=== PATIENT | female | born 1995 | race Caucasian/White ===

== ENCOUNTER 2017-05-24 23:16 | Emergency (ER) | payer SELFPAY ==
[2017-05-24] MEDS ORDERED: Ondansetron 4 MG/2 ML SDV IVPUSH ONE (23:47)
[2017-05-24] MEDS ORDERED: Sodium Chloride 0.9% 500 ML IV ONE (23:47)
[2017-05-24] MEDS ORDERED: HYDROmorphone 0.5 MG/0.5 ML Syringe IVPUSH ONE (23:47)
[2017-05-24] MEDS ORDERED: Sodium Chloride 0.9% 10 ML Syringe FLUSH PRN (23:47)
--- NOTE | 2017-05-25 00:11 | EDM.PDOC ---
ED HPI GENERAL MEDICAL PROBLEM - General Chief Complaint: Abdominal Pain Stated Complaint: RIGHT SIDE PAIN Time Seen by Provider: 05/24/17 23:37 Source of Information: Reports: Patient, RN Notes Reviewed - History of Present Illness INITIAL COMMENTS - FREE TEXT/NARRATIVE: 22-year-old female comes in with right-sided abdominal and flank discomfort. This started about 8 hours ago. This started in the right flank area with radiation to her back. There also has been sharp shooting discomfort involving right upper to right lower abdomen but not clear into the groin. She states there is a baseline ache that does not go completely away. She does get severe cramps or spasms that bring it up to a 9 or 10 level. Her appetite this evening is diminished but no vomiting or diarrhea. No voiding symptomatology. Last menstrual period 3-4 weeks ago. No current vaginal bleeding or spotting. No prior abdominal surgeries. Right Lower Abdomen Pain Score (Numeric/FACES): 8 - Related Data Allergies Allergy/AdvReac Type Severity Reaction Status Date / Time No Known Allergies Allergy Verified 05/24/17 23:27 Home Meds: Home Meds . [No Known Home Meds] 05/24/17 [History] Past Medical History - Past Health History Medical/Surgical History: Denies Medical/Surgical History Social & Family History - Family History Family Medical History: Noncontributory - Tobacco Use Smoking Status *Q: Current Every Day Smoker Years of Tobacco use: 1 Packs/Tins Daily: 0.5 - Recreational Drug Use Recreational Drug Use: No ED ROS GENERAL - Review of Systems Review Of Systems: See Below Constitutional: Denies: Fever, Chills HEENT: Denies: Rhinitis, Throat Pain Respiratory: Reports: Cough (Occasional, nonproductive) Cardiovascular: Denies: Chest Pain GI/Abdominal: Reports: Abdominal Pain (Right-sided), Decreased Appetite. Denies : Constipation, Diarrhea, Nausea, Vomiting : Reports: No Symptoms Musculoskeletal: Reports: Back Pain (Right-sided) Skin: Reports: No Symptoms Neurological: Reports: No Symptoms ED EXAM, GI/ABD - Physical Exam Exam: See Below General Appearance: Alert, Moderate Distress Eyes: Bilateral: Normal Appearance Throat/Mouth: Normal Inspection, Normal Oropharynx Head: No: Facial Swelling Neck: Supple, Full Range of Motion Respiratory/Chest: No Respiratory Distress, Lungs Clear, Normal Breath Sounds Cardiovascular: Tachycardia GI/Abdominal Exam: Tender (Right upper quadrant right flank right lower quadrant , left abdomen nontender). No: Guarding, Rebound Back Exam: CVA Tenderness (R). No: CVA Tenderness (L) Extremities: Normal Inspection, Normal Range of Motion Neurological: Alert, Oriented, No Motor/Sensory Deficits Skin Exam: Warm, Dry, Normal Color Course - Vital Signs Last Recorded V/S: Last Vital Signs Temp 98.4 F 05/24/17 23:24 Pulse 110 H 05/24/17 23:24 Resp 16 05/24/17 23:24 BP 151/82 H 05/24/17 23:24 Pulse Ox 100 05/24/17 23:24 - Orders/Labs/Meds Orders: Active Orders 24 hr Category Date Time Status Peripheral IV Care [RC] . DIRECTED Care 05/24/17 23:48 Active Transvaginal Non OB [US] Stat Exams 05/25/17 01:18 Taken Sodium Chloride 0.9% [Saline Flush] Med 05/24/17 23:47 Active 10 ml FLUSH ASDIRECTED PRN Peripheral IV Insertion Adult [OM.PC] Stat Oth 05/24/17 23:47 Ordered Medication Orders Sodium Chloride (Saline Flush) 10 ml FLUSH ASDIRECTED PRN PRN Reason: Keep Vein Open Last Admin: 05/25/17 00:01 Dose: 10 ml Labs: Laboratory Tests 05/24/17 05/24/17 05/24/17 Range/Units 23:53 23:53 23:53 WBC 9.92 (3.98-10.04) K/mm3 RBC 4.34 (3.98-5.22) M/mm3 Hgb 13.1 (11.2-15.7) gm/L Hct 39.0 (34.1-44.9) % MCV 89.9 (79.4-94.8) fl MCH 30.2 (25.6-32.2) pg MCHC 33.6 (32.2-35.5) g/dl RDW Std Deviation 41.9 (36.4-46.3) fL Plt Count 296 (182-369) K/mm3 MPV 9.5 (9.4-12.3) fl Neutrophils % (Manual) 59 (40-60) % Band Neutrophils % 0 (0-10) % Lymphocytes % (Manual) 36 (20-40) % Atypical Lymphs % 0 % Monocytes % (Manual) 3 (2-10) % Eosinophils % (Manual) 2 (0.7-5.8) % Basophils % (Manual) 0 L (0.1-1.2) Toxic Granulation See note Platelet Estimate Adequate Plt Morphology Comment Normal RBC Morph Comment Normal Sodium 139 (136-145) mEq/L Potassium 3.6 (3.5-5.1) mEq/L Chloride 103 (98-107) mEq/L Carbon Dioxide 23 (21-32) mEq/L Anion Gap 16.6 H (5-15) BUN 8 (7-18) mg/dL Creatinine 0.7 (0.55-1.02) mg/dL Est Cr Clr Drug Dosing 91.32 mL/min Estimated GFR (MDRD) > 60 (>60) mL/min BUN/Creatinine Ratio 11.4 L (14-18) Glucose 87 (74-106) mg/dL Calcium 9.6 (8.5-10.1) mg/dL Total Bilirubin 0.4 (0.2-1.0) mg/dL AST 13 L (15-37) U/L ALT 18 (14-59) U/L Alkaline Phosphatase 49 (46-116) U/L C-Reactive Protein < 0.2 (<1.0) mg/dL Total Protein 8.4 H (6.4-8.2) g/dl Albumin 4.6 (3.4-5.0) g/dl Globulin 3.8 gm/dL Albumin/Globulin Ratio 1.2 (1-2) Urine Color (Yellow) Urine Appearance (Clear) Urine pH (5.0-8.0) Ur Specific [place] (1.005-1.030) Urine Protein (Negative) Urine Glucose (UA) (Negative) Urine Ketones (Negative) Urine Occult Blood (Negative) Urine Nitrite (Negative) Urine Bilirubin (Negative) Urine Urobilinogen (0.2-1.0) Ur Leukocyte Esterase (Negative) Urine RBC (0-5) /hpf Urine WBC (0-5) /hpf Ur Epithelial Cells (0-5) /hpf Urine Bacteria (FEW) /hpf Urine Mucus (FEW) /hpf Urine HCG, Qual (NEGATIVE) 05/24/17 05/24/17 Range/Units 23:55 23:55 WBC (3.98-10.04) K/mm3 RBC (3.98-5.22) M/mm3 Hgb (11.2-15.7) gm/L Hct (34.1-44.9) % MCV (79.4-94.8) fl MCH (25.6-32.2) pg MCHC (32.2-35.5) g/dl RDW Std Deviation (36.4-46.3) fL Plt Count (182-369) K/mm3 MPV (9.4-12.3) fl Neutrophils % (Manual) (40-60) % Band Neutrophils % (0-10) % Lymphocytes % (Manual) (20-40) % Atypical Lymphs % % Monocytes % (Manual) (2-10) % Eosinophils % (Manual) (0.7-5.8) % Basophils % (Manual) (0.1-1.2) Toxic Granulation Platelet Estimate Plt Morphology Comment RBC Morph Comment Sodium (136-145) mEq/L Potassium (3.5-5.1) mEq/L Chloride (98-107) mEq/L Carbon Dioxide (21-32) mEq/L Anion Gap (5-15) BUN (7-18) mg/dL Creatinine (0.55-1.02) mg/dL Est Cr Clr Drug Dosing mL/min Estimated GFR (MDRD) (>60) mL/min BUN/Creatinine Ratio (14-18) Glucose (74-106) mg/dL Calcium (8.5-10.1) mg/dL Total Bilirubin (0.2-1.0) mg/dL AST (15-37) U/L ALT (14-59) U/L Alkaline Phosphatase (46-116) U/L C-Reactive Protein (<1.0) mg/dL Total Protein (6.4-8.2) g/dl Albumin (3.4-5.0) g/dl Globulin gm/dL Albumin/Globulin Ratio (1-2) Urine Color Yellow (Yellow) Urine Appearance Clear (Clear) Urine pH 7.0 (5.0-8.0) Ur Specific [place] 1.015 (1.005-1.030) Urine Protein Negative (Negative) Urine Glucose (UA) Negative (Negative) Urine Ketones Negative (Negative) Urine Occult Blood Negative (Negative) Urine Nitrite Negative (Negative) Urine Bilirubin Negative (Negative) Urine Urobilinogen 0.2 (0.2-1.0) Ur Leukocyte Esterase Negative (Negative) Urine RBC 0-5 (0-5) /hpf Urine WBC 0-5 (0-5) /hpf Ur Epithelial Cells 0-5 (0-5) /hpf Urine Bacteria Rare (FEW) /hpf Urine Mucus Not seen (FEW) /hpf Urine HCG, Qual Negative (NEGATIVE) Meds: Medications Generic Name Dose Route Start Last Admin Trade Name Freq PRN Reason Stop Dose Admin Sodium Chloride 10 ml 05/24/17 23:47 05/25/17 00:01 Saline Flush FLUSH 10 ml ASDIRECTED PRN Administration Keep Vein Open Discontinued Medications Generic Name Dose Route Start Last Admin Trade Name Freq PRN Reason Stop Dose Admin Hydromorphone HCl 0.5 mg 05/24/17 23:47 05/25/17 00:00 Dilaudid IVPUSH 05/24/17 23:48 0.5 mg ONETIME ONE Administration Hydromorphone HCl 0.5 mg 05/25/17 01:10 05/25/17 01:19 Dilaudid IVPUSH 05/25/17 01:11 0.5 mg ONETIME ONE Administration Hydromorphone HCl 0.5 mg 05/25/17 03:40 05/25/17 03:47 Dilaudid IVPUSH 05/25/17 03:41 0.5 mg ONETIME ONE Administration Sodium Chloride 500 mls @ 999 mls/hr 05/24/17 23:47 05/25/17 00:00 Normal Saline IV 05/25/17 00:17 999 mls/hr .BOLUS ONE Administration Ondansetron HCl 4 mg 05/24/17 23:47 05/25/17 00:00 Zofran IVPUSH 05/24/17 23:48 4 mg ONETIME ONE Administration - Re-Assessments/Exams Free Text/Narrative Re-Assessment/Exam: 05/25/17 01:10 White blood count, C-reactive protein normal. Labs are good. Urinalysis also normal. She does continue to have moderate right-sided discomfort somewhat better after Dilaudid 0.5 mg IV but still having moderate discomfort and tenderness right upper and lower abdomen. Has strong suspicion that this could be a ruptured ovarian cyst, will do pelvic ultrasound due to continued severity of discomfort. On 3:35. Ultrasound report does show a pocket of complex fluid right adnexal region suggestive for ruptured ovarian cyst, see report for details. Departure - Departure Time of Disposition: 01:14 Disposition: Home, Self-Care 01 Condition: Fair Clinical Impression: Ruptured ovarian cyst Abdominal pain Qualifiers: Abdominal location: right lower quadrant Qualified Code(s): R10.31 - Right lower quadrant pain - Discharge Information Instructions: Ovarian Cyst, [id number] Referrals: PCP,None [Primary Care Provider] - Forms: ED Department Discharge Additional Instructions: The discomfort you are having should gradually get better over the next 2-3 days , Tylenol every 6-8 hours for mild to moderate discomfort or hydrocodone if needed for more severe pain, do not take Tylenol and hydrocodone at the same time, do not drive or work when taking the hydrocodone pain medication. Follow- up clinic in 3-4 days if not much better, return to ED if symptoms worsening in any way. Radiologist does recommend a follow-up ultrasound in about 6 weeks. That can be ordered by your regular medical provider. - My Orders Last 24 Hours: My Active Orders 05/24/17 23:47 Sodium Chloride 0.9% [Saline Flush] 10 ml FLUSH ASDIRECTED PRN Peripheral IV Insertion Adult [OM.PC] Stat 05/24/17 23:48 Peripheral IV Care [RC] . DIRECTED 05/25/17 01:18 Transvaginal Non OB [US] Stat - Assessment/Plan Last 24 Hours: My Active Orders 05/24/17 23:47 Sodium Chloride 0.9% [Saline Flush] 10 ml FLUSH ASDIRECTED PRN Peripheral IV Insertion Adult [OM.PC] Stat 05/24/17 23:48 Peripheral IV Care [RC] . DIRECTED 05/25/17 01:18 Transvaginal Non OB [US] Stat
[2017-05-25] MEDS ORDERED: HYDROmorphone 0.5 MG/0.5 ML Syringe IVPUSH ONE ×2 (01:10→03:40)
--- NOTE | 2017-05-25 06:41 | US ---
Pelvic ultrasound: Multiple real-time images were obtained transvaginally. Uterus is anteverted. Incidental nabothian cysts are identified. Minimal cystic area within the endometrial cavity is seen believed to represent minimal amount of fluid. Endometrial thickness is normal at 1.2 cm. No myometrial abnormality is seen. Follicles are identified within both ovaries. Fluid is identified within the right adnexa. Measurements: Uterus: Length 7.0 cm, AP height 3.9 cm, transverse width 6.1 cm Right ovary: 4.6 x 2.1 x 2.8 cm Left ovary: 3.2 x 2.0 x 3.0 cm Impression: 1. Fluid within the right adnexa possibly due to cyst rupture. 2. Minimal fluid within the endometrial cavity which is felt to be incidental. 3. No additional abnormality is identified on pelvic ultrasound exam. Diagnostic code #3 Agree with preliminary report issued by [facility] ([facility] preliminary report dictated on 05/25/17, 4:30 AM Central Time)
== END 2017-05-25 03:55 | disposition home or self-care (01) ==
LOC: JD.ED 23:16
DX: N83.201 Unspecified ovarian cyst, right side (principal); F17.210 Nicotine dependence, cigarettes, uncomplicated
CPT/HCPCS: 36415; 76830; 80053; 81001; 81025; 85025; 86140; 96374; 96375; 96376; 99284; J1170; J2405; J7040; J7050; 99283

== ENCOUNTER 2019-09-08 07:58 | Emergency (ER) | payer MEDICAID ==
[2019-09-08] MEDS ORDERED: Acetaminophen/oxyCODONE 325-5 MG Tab PO ONE (08:12)
[2019-09-08] MEDS ORDERED: Ondansetron 4 MG Tab.DIS PO PRN (08:13)
--- NOTE | 2019-09-08 08:17 | EDM.PDOC ---
ED HPI GENERAL MEDICAL PROBLEM - General Chief Complaint: ENT Problem Stated Complaint: R EAR PAIN Time Seen by Provider: 09/08/19 08:04 Source of Information: Reports: Patient History Limitations: Reports: No Limitations - History of Present Illness INITIAL COMMENTS - FREE TEXT/NARRATIVE: 24-year-old female presents to the ED with severe right ear pain that started last evening and is intensified overnight. It would not allow her to get any sleep at all. Of note she is in the trimester approximately 32 weeks gestation. Her EDC has been set at December 01, 2019. She reports her cough is for the most part nonparoxysmal. Nasal congestion sore throat associate with ear infection. Nasal congestion started about 4 days ago as did the cough. No high fevers to suggest influenza. Onset: Sudden Onset Date: 09/07/19 (Cute onset of severe right ear pain last evening.) Duration: Hour(s):, Getting Worse Location: Reports: Face (Right ear pain) Quality: Reports: Ache ( constant and throbbing with occasional sharp stabbing pain.), Sharp, Stabbing Severity: Severe Improves with: Reports: None (10 out of 10) Worsens with: Reports: None Context: Reports: Other (Associate with a viral upper respiratory tract infection with nasal congestion sore throat and cough). 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 EDC is set at December 01, 2019.) Musculoskeletal History: Reports: Other (See Below) Other Musculoskeletal History: ACL with repair left leg - Infectious Disease History Infectious Disease History: Reports: Chicken Pox - Past Surgical History HEENT Surgical History: Reports: Myringotomy w Tube(s) Social & Family History - Family History Family Medical History: Noncontributory - Tobacco Use Smoking Status *Q: Current Every Day Smoker Years of Tobacco use: 4 Packs/Tins Daily: 0.2 - Caffeine Use Caffeine Use: Reports: Coffee - Living Situation & Occupation Living situation: Reports: Single Occupation: Employed (Time employed) ED ROS ENT - Review of Systems Review Of Systems: See Below Constitutional: Reports: Fever, Malaise, Weakness, Fatigue, Decreased Appetite. Denies: Chills, Weight Loss HEENT: Reports: Ear Pain (Right ear pain.), Throat Pain Respiratory: Reports: Cough Cardiovascular: Reports: No Symptoms (Mostly nonproductive) Endocrine: Reports: Fatigue GI/Abdominal: Reports: No Symptoms : Reports: Other (Currently 32 weeks gestation.) Musculoskeletal: Reports: No Symptoms Skin: Reports: No Symptoms Neurological: Reports: No Symptoms Psychiatric: Reports: No Symptoms Hematologic/Lymphatic: Reports: No Symptoms Immunologic: Reports: No Symptoms ED EXAM, ENT - Physical Exam Exam: See Below Exam Limited By: No Limitations General Appearance: Alert, WD/WN, Moderate Distress (Is miserable and she appears like she has not slept all night.) Eye Exam: Bilateral Eye: Normal Inspection Ears: Normal External Exam, TM Bulging (Marked right ear), TM Erythema (Your right ear), Other (Left tympanic membrane is normal.). No: Auricular Tenderness Nose: Clear Rhinorrhea Mouth/Throat: Normal Inspection, Normal Gums, Normal Lips, Pharyngeal Erythema ( Diffuse pharyngeal erythema without exudate.) Head: Atraumatic, Normocephalic Neck: Normal Inspection, Supple, Non-Tender, Full Range of Motion, Lymphadenopathy (L), Lymphadenopathy (R) (Mild) Respiratory/Chest: No Respiratory Distress, Lungs Clear, Normal Breath Sounds, No Accessory Muscle Use ( mild). No: Respiratory Distress, Rales, Rhonchi Cardiovascular: Normal Peripheral Pulses, Regular Rate, Rhythm, No Edema, No Gallop, No Murmur, No Rub GI/Abdominal: Normal Bowel Sounds, Soft, Non-Tender, No Organomegaly, Distended , Other (Gravid uterus palpable between the xiphisternum and the umbilicus.) Extremities: Normal Inspection, Normal Range of Motion, Non-Tender, No Pedal Edema Neurological: Alert, Oriented, CN II-XII Intact, Normal Cognition Psychiatric: Other (Is very tired and is in obvious pain.) Skin: Warm, Dry, Intact, Normal Color, No Rash Course - Vital Signs Last Recorded V/S: Last Vital Signs Temp 36.9 C 09/08/19 08:04 Pulse 87 09/08/19 08:04 Resp 16 09/08/19 08:04 BP 120/92 H 09/08/19 08:04 Pulse Ox 100 09/08/19 08:04 - Orders/Labs/Meds Orders: Active Orders 24 hr Category Date Time Status Ondansetron [Zofran ODT] Med 09/08/19 08:13 Active 4 mg PO Q4H PRN Medication Orders Ondansetron HCl (Zofran Odt) 4 mg PO Q4H PRN PRN Reason: Nausea/Vomiting Meds: Medications Generic Name Dose Route Start Last Admin Trade Name Freq PRN Reason Stop Dose Admin Ondansetron HCl 4 mg 09/08/19 08:13 Zofran Odt PO Q4H PRN Nausea/Vomiting Discontinued Medications Generic Name Dose Route Start Last Admin Trade Name Freq PRN Reason Stop Dose Admin Oxycodone/Acetaminophen 1 tab 09/08/19 08:12 Percocet 325-5 Mg PO 09/08/19 08:13 ONETIME ONE - Radiology Interpretation Free Text/Narrative:: 24-year-old female presents to the ED at 32 weeks gestation. She presents with a severe right ear pain ache that started last night. This is preceded by viral upper spike tract infection with nasal congestion and not nonproductive cough and mild sore throat for the last 3 to 4 days. She had plenty of ear infections as a youngster myringotomy tubes x1. Examination reveals the left TM is normal. There is some scar tissue from previous myringotomy tube placement. The right TM is very erythematous bulging and obviously infected. Mild pharyngitis appreciated as well lungs are clear treatment will be Percocet tabs 5/325 mg 1 or 2 every 4-6 hours for pain relief as needed. Antibiotic will be Omnicef 300 mg twice daily for the next 8 days to clear up ear infection. He is to expect improvement over the next 36 to 48 hours. Departure - Departure Time of Disposition: 08:13 Disposition: Home, Self-Care 01 Condition: Fair Clinical Impression: Otitis media Qualifiers: Otitis media type: suppurative Chronicity: acute Laterality: right Recurrence: non-recurrent Spontaneous tympanic membrane rupture: without spontaneous rupture Qualified Code(s): H66.001 - Acute suppurative otitis media without spontaneous rupture of ear drum, right ear Upper respiratory infection Qualifiers: URI type: unspecified viral URI Qualified Code(s): J06.9 - Acute upper respiratory infection, unspecified - Discharge Information *PRESCRIPTION DRUG MONITORING PROGRAM REVIEWED*: Not Applicable *COPY OF PRESCRIPTION DRUG MONITORING REPORT IN PATIENT CASS: Not Applicable Prescriptions: Cefdinir [Omnicef] 300 mg PO BID #16 cap oxyCODONE HCl/Acetaminophen [Percocet 5-325 mg Tablet] 1 - 2 each PO Q4H PRN # 12 tablet PRN Reason: pain relief. Instructions: Upper Respiratory Infection, Adult, Otitis Media, Adult, Easy-to- Read Referrals: PCP,None [Primary Care Provider] - Forms: ED Department Discharge Additional Instructions: Evaluation in the emergency room this morning in regards to upper respiratory tract infection with nasal congestion and mild nonproductive cough for the last 3 to 4 days. Development of severe right earache last evening and overnight. Examination confirms a right otitis media. The left is within normal limits other than scarring on the eardrum from previous tympanostomy tube placement. The oropharynx also shows some degree of inflammation Pentagon the right side. No exudate or pus is identified. There is diffuse swelling and tenderness throughout the cervical lymph nodes. Paroxysmal nonproductive cough and lungs are clear to all station percussion. Treatment is Percocet tabs 5/325 1 g tablet 1 to 2 tablets every 4-6 hours as needed for pain relief until the antibiotics become effective. Antibiotic is to be Omnicef 300 mg twice daily for the next 8 days. Expect marked improvement after your third dose of antibiotic treatment. This will likely be about a day and a half. Sepsis Event Note - Evaluation Sepsis Screening Result: No Definite Risk - Focused Exam Vital Signs: Vital Signs Temp Pulse Resp BP Pulse Ox 09/08/19 08:04 36.9 C 87 16 120/92 H 100 Date Exam was Performed: 09/08/19 Time Exam was Performed: 08:17 - My Orders Last 24 Hours: My Active Orders 09/08/19 08:13 Ondansetron [Zofran ODT] 4 mg PO Q4H PRN - Assessment/Plan Last 24 Hours: My Active Orders 09/08/19 08:13 Ondansetron [Zofran ODT] 4 mg PO Q4H PRN
== END 2019-09-08 08:33 | disposition home or self-care (01) ==
LOC: JD.ED 07:58
DX: H66.001 Acute suppurative otitis media without spontaneous rupture of ear drum, right ear (principal); J06.9 Acute upper respiratory infection, unspecified; F17.210 Nicotine dependence, cigarettes, uncomplicated
CPT/HCPCS: 99282; A9270; 99283

== ENCOUNTER 2019-11-24 08:54 | Inpatient (IN) | payer MEDICAID ==
[2019-11-24] MEDS ORDERED: Ondansetron 4 MG/2 ML SDV IVPUSH PRN ×2 (09:05→09:42)
[2019-11-24] MEDS ORDERED: Sodium Chloride 0.9% 10 ML Syringe FLUSH PRN (09:05)
[2019-11-24] MEDS ORDERED: Nalbuphine 10 MG/ML Syringe IVPUSH PRN (09:05)
--- NOTE | 2019-11-24 09:07 | PCM.LDHP ---
L&D History of Present Illness - General Date of Service: 11/24/19 Admit Problem/Dx: Patient Status Order with Admit Dx/Problem 11/24/19 09:06 Patient Status [ADT] Routine Admission Diagnosis/Problem Admission Diagnosis/Problem Normal labor Source of Information: Patient History Limitations: Reports: No Limitations - History of Present Illness Introduction:: Patient is a 24 y/o at 39 0/7 wks who presents for worsening contractions. In L&D overnight for concerns of labor. Exam showed her to be stable at about 3 cm. Was thus discharged home. Contractions worsened though overnight. Now here for reassessment - Related Data Allergies/Adverse Reactions: Allergies Allergy/AdvReac Type Severity Reaction Status Date / Time No Known Allergies Allergy Verified 09/08/19 08:05 Home Medications: Home Meds Ferrous Sulfate [Iron] 325 mg PO DAILY 11/23/19 [History] Pnv No.95/Ferrous Fum/Folic AC [ Vitamin Tablet] 1 each PO DAILY [History] Past Medical History LICENSED [employer] History: Reports: : 2 Para: 1 - Infectious Disease History Infectious Disease History: Reports: Chicken Pox - Past Surgical History HEENT Surgical History: Reports: Myringotomy w Tube(s) Musculoskeletal Surgical History: Reports: Arthroscopic Knee Social & Family History - Family History Family Medical History: Noncontributory - Tobacco Use Smoking Status *Q: Never Smoker - Caffeine Use Caffeine Use: Reports: Coffee - Alcohol Use Alcohol Use History: No - Recreational Drug Use Recreational Drug Use: No - Living Situation & Occupation Living situation: Reports: Single Occupation: Employed (Time employed) H&P Review of Systems - Review of Systems: Review Of Systems: See Below General: Reports: No Symptoms Pulmonary: Reports: No Symptoms Cardiovascular: Reports: No Symptoms Gastrointestinal: Reports: Abdominal Pain Genitourinary: Reports: No Symptoms Musculoskeletal: Reports: No Symptoms Psychiatric: Reports: No Symptoms L&D Exam - Exam Exam: See Below - OB Specific Contraction Intensity: Moderate to Strong Movement: Active Heart Tones: Present Heart Tones per Min: 140 Heart Rate (FHR) Variability: Moderate (6-25 bmp) Presentation: Vertex - Guardado Score Guardado Score Cervix Position: Posterior Guardado Score Consistency: Soft Guardado Score Effacement: >80% Guardado Score Dilation: > 5 cm Guardado Score Infant's Station: -2 Guardado Score Total: 9 - Exam General: Alert, Oriented, Cooperative Lungs: Clear to Auscultation, Normal Respiratory Effort Cardiovascular: Regular Rate, Regular Rhythm GI/Abdominal Exam: Soft, Non-Tender Genitourinary: Normal external exam Extremities: Normal Inspection Skin: Warm, Dry, Intact - Patient Data Result Diagrams: 11/24/19 09:15 - Problem List (1) 39 weeks gestation of SNOMED Code(s): 57629897 ICD Code: Z3A.39 - 39 WEEKS GESTATION OF Status: Acute Current Visit: Yes (2) Normal labor SNOMED Code(s): 16797739 ICD Code: O80 - ENCOUNTER FOR FULL-TERM UNCOMPLICATED DELIVERY; Z37.9 - OUTCOME OF DELIVERY, UNSPECIFIED Status: Acute Current Visit: Yes Problem List Initiated/Reviewed/Updated: Yes Orders Last 24hrs: Active Orders 24 hr Category Date Time Status Patient Status [ADT] Routine ADT 11/24/19 09:06 Ordered Activity as Tolerated [RC] PFP Care 11/24/19 09:05 Ordered Communication Order [RC] ASDIRECTED Care 11/24/19 09:05 Ordered Heart Tones [RC] ASDIRECTED Care 11/24/19 09:06 Ordered Non Stress Test [RC] PER UNIT ROUTINE Care 11/24/19 09:05 Ordered Notify Provider [RC] PFP Care 11/24/19 09:05 Ordered Notify Provider [RC] PRN Care 11/24/19 09:05 Ordered Peripheral IV Care [RC] . DIRECTED Care 11/24/19 09:06 Ordered Vital Signs [RC] PER UNIT ROUTINE Care 11/24/19 09:05 Ordered Regular Diet [DIET] Diet 11/24/19 Lunch Ordered CBC W/O DIFF,HEMOGRAM [HEME] Stat Lab 11/24/19 09:05 Ordered RAPID PLASMA REAGIN,RPR [CHEM] Routine Lab 11/24/19 09:05 Ordered TYPE AND SCREEN [BBK] Stat Lab 11/24/19 09:05 Ordered Lactated Ringers [Ringers, Lactated] 1,000 ml Med 11/24/19 09:15 Ordered IV ASDIRECTED Nalbuphine [Nubain] Med 11/24/19 09:05 Ordered 10 mg IVPUSH Q2H PRN Ondansetron [Zofran] Med 11/24/19 09:05 Ordered 4 mg IVPUSH Q4H PRN Oxytocin/Lactated Ringers [Pitocin in LR 10 Units/1,000 Med 11/24/19 09:15 Ordered ML] 10 unit in 1,000 ml IV .CONTINUOUS Sodium Chloride 0.9% [Saline Flush] Med 11/24/19 09:05 Ordered 10 ml FLUSH ASDIRECTED PRN Electronic Heart Tones Ext w TOCO [WOMSER] Ot 11/24/19 09:05 Ordered Routine Electronic Heart Tones Internal [WOMSER] Per Unit Ot 11/24/19 09:05 Ordered Routine Peripheral IV Insertion Adult [OM.PC] Routine Ot 11/24/19 09:05 Ordered Resuscitation Status Routine Resus Stat 11/24/19 09:05 Ordered Assessment/Plan Comment:: * Labs done * GBS negative * Pain management per patient preference * Anticipate
[2019-11-24] MEDS ORDERED: Oxytocin/Lactated Ringers 10 UNIT/1,000 ML BAG IV SCH ×2 (09:15→12:15)
[2019-11-24] MEDS: Lactated Ringers 1,000 ML IV SCH ×3 (09:22→10:43)
[2019-11-24] MEDS ORDERED: ePHEDrine 50 MG/ML SDV IVPUSH PRN (09:42)
[2019-11-24] MEDS ORDERED: fentaNYL 100 MCG/2 ML SDV EPIDUR PRN (09:42)
[2019-11-24] MEDS ORDERED: Bupivacaine/fentaNYL/NS 100 ML Bag EPIDUR SCH (09:45)
[2019-11-24] MEDS ORDERED: Phenylephrine 1 MG in Sodium Chloride 0.9% 10 ML IV SCH (09:45)
--- NOTE | 2019-11-24 09:58 | PCM.PREANE ---
Preanesthetic Assessment - Procedure Proposed Procedure: Epidural. - Anesthesia/Transfusion/Family Hx Anesthesia History: Prior Anesthesia Without Reaction Family History of Anesthesia Reaction: No Transfusion History: No Prior Transfusion(s) Intubation History: Unknown - Review of Systems General: No Symptoms Pulmonary: No Symptoms (Smoker: 1/2 ppd times 1 year.) Cardiovascular: No Symptoms, Palpitations (with ) Gastrointestinal: No Symptoms Neurological: No Symptoms Other: Reports: None - Physical Assessment NPO Status Date: 11/23/19 NPO Status Time: 23:59 Vital Signs: Last Vital Signs Temp 36.2 C 11/24/19 09:37 Pulse 107 H 11/24/19 09:37 Resp 16 11/24/19 09:37 BP 130/76 11/24/19 09:37 Pulse Ox Height: 1.52 m Weight: 67.676 kg ASA Class: 2 Mental Status: Alert & Oriented x3 Airway Class: Mallampati = 2 Dentition: Reports: Normal Dentition (tongue piercing noted/ removed. left nare nose piercing noted.), Caries Thyro-Mental Finger Breadths: 3 Mouth Opening Finger Breadths: 3 ROM/Head Extension: Full Lungs: Clear to Auscultation, Normal Respiratory Effort Cardiovascular: Regular Rate, Regular Rhythm, No Murmurs - Lab Values: Laboratory Last Values WBC 14.78 K/mm3 (3.98-10.04) H 11/24/19 09:15 RBC 4.02 M/mm3 (3.98-5.22) 11/24/19 09:15 Hgb 11.8 gm/dl (11.2-15.7) 11/24/19 09:15 Hct 36.6 % (34.1-44.9) 11/24/19 09:15 MCV 91.0 fl (79.4-94.8) 11/24/19 09:15 MCH 29.4 pg (25.6-32.2) 11/24/19 09:15 MCHC 32.2 g/dl (32.2-35.5) 11/24/19 09:15 RDW Std Deviation 46.2 fL (36.4-46.3) 11/24/19 09:15 Plt Count 296 K/mm3 (182-369) 11/24/19 09:15 MPV 9.8 fl (9.4-12.3) 11/24/19 09:15 All labs reviewed and noted and within acceptable ranges to proceed with epidural. - Allergies Allergies/Adverse Reactions: Allergies Allergy/AdvReac Type Severity Reaction Status Date / Time No Known Allergies Allergy Verified 09/08/19 08:05 - Anesthesia Plan Pre-Op Medication Ordered: None - Acknowledgements Anesthesia Type Planned: Epidural Pt an Appropriate Candidate for the Planned Anesthesia: Yes Alternatives and Risks of Anesthesia Discussed w Pt/Guardian: Yes Pt/Guardian Understands and Agrees with Anesthesia Plan: Yes PreAnesthesia Questionnaire - Past Health History Medical/Surgical History: Denies Medical/Surgical History HEENT History: Reports: Other (See Below) (Had myringotomy tubes placed as a youngster. X1) [employer] History: Reports: Musculoskeletal History: Reports: Other (See Below) Other Musculoskeletal History: ACL with repair left leg - Infectious Disease History Infectious Disease History: Reports: Chicken Pox - Past Surgical History HEENT Surgical History: Reports: Myringotomy w Tube(s) - HOME MEDS Home Medications: Home Meds Ferrous Sulfate [Iron] 325 mg PO DAILY 11/23/19 [History] Pnv No.95/Ferrous Fum/Folic AC [ Vitamin Tablet] 1 each PO DAILY [History] - CURRENT (IN HOUSE) MEDS Current Meds: Current Medications Ephedrine Sulfate (Ephedrine Sulfate) 5 mg IVPUSH ASDIRECTED PRN PRN Reason: Hypotension Fentanyl (Sublimaze) 100 mcg EPIDUR Q3H PRN PRN Reason: Pain Fentanyl/Bupivacaine HCl (Fentanyl/Bupivacaine/Ns 2 Mcg-0.125% 100 Ml) 100 ml EPIDUR ASDIRECTED RIAN Lactated Ringer's (Ringers, Lactated) 1,000 mls @ 100 mls/hr IV ASDIRECTED RIAN Last Admin: 11/24/19 09:22 Dose: 999 mls/hr Oxytocin/Lactated Ringer's (Pitocin In Lr 10 Units/1,000 Ml) 10 unit in 1,000 mls @ 500 mls/hr IV .CONTINUOUS RIAN Phenylephrine HCl 1 mg/ Sodium (Chloride) 10.1 mls @ 1 mls/sec IV TITRATE RIAN; Protocol Nalbuphine HCl (Nubain) 10 mg IVPUSH Q2H PRN PRN Reason: Pain Ondansetron HCl (Zofran) 4 mg IVPUSH Q4H PRN PRN Reason: Nausea/Vomiting Ondansetron HCl (Zofran) 4 mg IVPUSH ONETIME PRN PRN Reason: Nausea/Vomiting Sodium Chloride (Saline Flush) 10 ml FLUSH ASDIRECTED PRN PRN Reason: Keep Vein Open
[2019-11-24] MEDS ORDERED: Bupivacaine 0.25% 10 ML SDV ONE (10:00)
--- NOTE | 2019-11-24 12:12 | PCM.PNLD ---
Labor Progress Note - VS & Meds Vital Signs: Last Vital Signs Temp 36.2 C 11/24/19 09:37 Pulse 107 H 11/24/19 09:37 Resp 16 11/24/19 09:37 BP 130/76 11/24/19 09:37 Pulse Ox 98 11/24/19 09:41 Active Medications: Current Medications Ephedrine Sulfate (Ephedrine Sulfate) 5 mg IVPUSH ASDIRECTED PRN PRN Reason: Hypotension Fentanyl (Sublimaze) 100 mcg EPIDUR Q3H PRN PRN Reason: Pain Last Admin: 11/24/19 09:53 Dose: 100 mcg Fentanyl/Bupivacaine HCl (Fentanyl/Bupivacaine/Ns 2 Mcg-0.125% 100 Ml) 100 ml EPIDUR ASDIRECTED RIAN Last Admin: 11/24/19 09:53 Dose: 100 ml Lactated Ringer's (Ringers, Lactated) 1,000 mls @ 100 mls/hr IV ASDIRECTED RIAN Last Admin: 11/24/19 10:43 Dose: 999 mls/hr Oxytocin/Lactated Ringer's (Pitocin In Lr 10 Units/1,000 Ml) 10 unit in 1,000 mls @ 500 mls/hr IV .CONTINUOUS RIAN Phenylephrine HCl 1 mg/ Sodium (Chloride) 10.1 mls @ 1 mls/sec IV TITRATE RIAN; Protocol Oxytocin/Lactated Ringer's (Pitocin In Lr 10 Units/1,000 Ml) 10 unit in 1,000 mls @ 12 mls/hr IV TITRATE RIAN; Protocol Nalbuphine HCl (Nubain) 10 mg IVPUSH Q2H PRN PRN Reason: Pain Ondansetron HCl (Zofran) 4 mg IVPUSH Q4H PRN PRN Reason: Nausea/Vomiting Ondansetron HCl (Zofran) 4 mg IVPUSH ONETIME PRN PRN Reason: Nausea/Vomiting Last Admin: 11/24/19 11:33 Dose: 4 mg Sodium Chloride (Saline Flush) 10 ml FLUSH ASDIRECTED PRN PRN Reason: Keep Vein Open - Uterine Contractions Uterine Monitoring Mode: External [place] Contraction Intensity: Moderate to Strong - Monitoring Monitor Mode: External Ultrasound Heart Rate (FHR) Variability: Moderate (6-25 bmp) Accelerations: Present, 15x15 Decelerations: Early, Variable Strip Review: Category II - Vaginal Exam Dilation (cm): 5 Effacement (Percent): 80 Station: -2 Cervical Position: Midposition - Labor Progress (Free Text) Labor Progress: Doing well. Comfortable with epidural. Attempted AROM, but almost feels as though no bag present. Mostly just feel cervical mucous. Chux have been dry under patient. Will continue ot monitor and consider augmentation with pitocin
[2019-11-24] MEDS ORDERED: ceFAZolin 2 GM in Premix Bag 1 BAG IV ONE (15:05)
--- NOTE | 2019-11-24 15:05 | PCM.DEL ---
L & D Note - General Info Date of Service: 11/24/19 - Delivery Note Labor: Augmented by Oxytocin Delivery Outcome: Livebirth Delivery Method: Spontaneous Vaginal Delivery-Single Delivery Mode: Spontaneous Presentation: Left Occiput Anterior (FAWN) Nuchal Cord: Present (x2), Reduced Anesthesia Type: Epidural Amniotic Fluid Description: Clear Episiotomy Type: None Laceration: None Placenta: Partial (Placenta delivered, but retained membanes) Cord: 2 Vessels Estimated Blood Loss: 100 Resuscitation Needed: Yes : Bulb Syringe, Stimulated, Warmed, [place] Used, Warmer Used Delivery Comments (Free Text/Narrative):: Patient found to be complete and began pushing. With maternal pushing effort head delivered from FAWN presentation. Double nuchal present and reduced. With gentle downward traction shoulders and body delivered. Infant placed on maternal abdomen. Cord clamped and cut. Cord blood obtained. Placenta delivered intact, however, membranes noted to be trailing into the uterus. These were able to be extracted after several passes/manual extraction. Inspection of the perineum showed no lacerations - General Info Date of Service: 11/24/19 - Patient Data Vitals - Most Recent: Last Vital Signs Temp 36.2 C 11/24/19 09:37 Pulse 107 H 11/24/19 09:37 Resp 16 11/24/19 09:37 BP 130/76 11/24/19 09:37 Pulse Ox 98 11/24/19 09:41 Weight - Most Recent: 67.676 kg I&O - Last 24 Hours: Intake & Output 11/24/19 11/24/19 11/24/19 06:59 14:59 22:59 Intake Total 3000 Balance 3000 - Problem List & Annotations (1) 39 weeks gestation of SNOMED Code(s): 07964316 Code(s): Z3A.39 - 39 WEEKS GESTATION OF Status: Acute Current Visit: Yes (2) Normal labor SNOMED Code(s): 40987582 Code(s): O80 - ENCOUNTER FOR FULL-TERM UNCOMPLICATED DELIVERY; Z37.9 - OUTCOME OF DELIVERY, UNSPECIFIED Status: Acute Current Visit: Yes (3) Vaginal delivery SNOMED Code(s): 830287408 Code(s): O80 - ENCOUNTER FOR FULL-TERM UNCOMPLICATED DELIVERY Status: Acute Current Visit: Yes - Problem List Review Problem List Initiated/Reviewed/Updated: Yes - My Orders Last 24 Hours: My Active Orders 11/24/19 09:05 Activity as Tolerated [RC] PFP Communication Order [RC] ASDIRECTED Non Stress Test [RC] PER UNIT ROUTINE Notify Provider [RC] PFP Notify Provider [RC] PRN Vital Signs [RC] PER UNIT ROUTINE Nalbuphine [Nubain] 10 mg IVPUSH Q2H PRN Ondansetron [Zofran] 4 mg IVPUSH Q4H PRN Sodium Chloride 0.9% [Saline Flush] 10 ml FLUSH ASDIRECTED PRN Electronic Heart Tones Ext w TOCO [WOMSER] Routine Electronic Heart Tones Internal [WOMSER] Per Unit Routine Peripheral IV Insertion Adult [OM.PC] Routine Resuscitation Status Routine 11/24/19 09:06 Patient Status [ADT] Routine Heart Tones [RC] ASDIRECTED Peripheral IV Care [RC] . DIRECTED 11/24/19 09:15 RAPID PLASMA REAGIN,RPR [CHEM] Routine Lactated Ringers [Ringers, Lactated] 1,000 ml IV ASDIRECTED Oxytocin/Lactated Ringers [Pitocin in LR 10 Units/1,000 ML] 10 unit in 1,000 ml IV .CONTINUOUS 11/24/19 10:01 PATIENT RETYPE [BBK] Routine 11/24/19 11:20 Consult to Case Management/Sanitary Inspector [CONS] Routine 11/24/19 12:15 Oxytocin/Lactated Ringers [Pitocin in LR 10 Units/1,000 ML] 10 unit in 1,000 ml IV TITRATE 11/24/19 Lunch Regular Diet [DIET] - Assessment Assessment:: PPD#0 - Plan Plan:: * Routine cares * Will monitor bleeding closely, however, do feel all membranes extracted. Will give dose of ancef * Bottle feeding * Discharge home in 1-2 days
[2019-11-24] MEDS ORDERED: Acetaminophen 325 MG Tab PO PRN (15:33)
[2019-11-24] MEDS ORDERED: Witch Hazel Medicated Pads 40/Jar TOP PRN (15:33)
[2019-11-24] MEDS ORDERED: Benzocaine/Menthol 20%-0.5% Spray 56 GM Canister TOP PRN (15:33)
[2019-11-24] MEDS ORDERED: ceFAZolin/Dextrose,Iso-Osmotic 2 GM/50 ML Duplex Bag IV ONE (16:05)
[2019-11-25] MEDS ORDERED: Docusate Sodium 100 MG Cap PO PRN (03:34)
[2019-11-25] MEDS: Ibuprofen 600 MG Tab PO PRN ×2 (03:37→09:48)
--- NOTE | 2019-11-25 06:37 | PCM.DCSUM1 ---
Discharge Summary - Hospital Course Free Text/Narrative:: [facility] LIVE L/D Delivery Note Patient Name: RAZIA GOODE Date of : 89 Patient Status: Inpatient Attending Provider: Yancy Figueredo Date: 11/24/19 15:00 Initialization Date: 11/24/19 15:00 L & D Note - General Info Date of Service: 11/24/19 - Delivery Note Labor: Augmented by Oxytocin Delivery Outcome: Livebirth Infant Delivery Method: Spontaneous Vaginal Delivery-Single Infant Delivery Mode: Spontaneous Presentation: Left Occiput Anterior (FAWN) Nuchal Cord: Present (x2), Reduced Anesthesia Type: Epidural Amniotic Fluid Description: Clear Episiotomy Type: None Laceration: None Placenta: Partial (Placenta delivered, but retained membanes) Cord: 2 Vessels Estimated Blood Loss: 100 Resuscitation Needed: Yes : Bulb Syringe, Stimulated, Warmed, Kincaid Used, Warmer Used Delivery Comments (Free Text/Narrative):: Patient found to be complete and began pushing. With maternal pushing effort head delivered from FAWN presentation. Double nuchal present and reduced. With gentle downward traction shoulders and body delivered. placed on maternal abdomen. Cord clamped and cut. Cord blood obtained. Placenta delivered intact, however, membranes noted to be trailing into the uterus. These were able to be extracted after several passes/manual extraction. Inspection of the perineum showed no lacerations - General Info Date of Service: 11/24/19 - Patient Data Vitals - Most Recent: Last Vital Signs Temp 36.2 C 11/24/19 09:37 Pulse 107 H 11/24/19 09:37 Resp 16 11/24/19 09:37 BP 130/76 11/24/19 09:37 Pulse Ox 98 11/24/19 09:41 Weight - Most Recent: 67.676 kg I&O - Last 24 Hours: Intake & Output 11/24/19 11/24/19 11/24/19 06:59 14:59 22:59 Intake Total 3000 Balance 3000 - Problem List & Annotations (1) 39 weeks gestation of SNOMED Code(s): 63718248 Code(s): Z3A.39 - 39 WEEKS GESTATION OF Status: Acute Current Visit: Yes (2) Normal labor SNOMED Code(s): 08646569 Code(s): O80 - ENCOUNTER FOR FULL-TERM UNCOMPLICATED DELIVERY; Z37.9 - OUTCOME OF DELIVERY, UNSPECIFIED Status: Acute Current Visit: Yes (3) Vaginal delivery SNOMED Code(s): 524814654 Code(s): O80 - ENCOUNTER FOR FULL-TERM UNCOMPLICATED DELIVERY Status: Acute Current Visit: Yes - Problem List Review Problem List Initiated/Reviewed/Updated: Yes - My Orders Last 24 Hours: My Active Orders 11/24/19 09:05 Activity as Tolerated [RC] PFP Communication Order [RC] ASDIRECTED Non Stress Test [RC] PER UNIT ROUTINE Notify Provider [RC] PFP Notify Provider [RC] PRN Vital Signs [RC] PER UNIT ROUTINE Nalbuphine [Nubain] 10 mg IVPUSH Q2H PRN Ondansetron [Zofran] 4 mg IVPUSH Q4H PRN Sodium Chloride 0.9% [Saline Flush] 10 ml FLUSH ASDIRECTED PRN Electronic Heart Tones Ext w TOCO [WOMSER] Routine Electronic Heart Tones Internal [WOMSER] Per Unit Routine Peripheral IV Insertion Adult [OM.PC] Routine Resuscitation Status Routine 11/24/19 09:06 Patient Status [ADT] Routine Heart Tones [RC] ASDIRECTED Peripheral IV Care [RC] . DIRECTED 11/24/19 09:15 RAPID PLASMA REAGIN,RPR [CHEM] Routine Lactated Ringers [Ringers, Lactated] 1,000 ml IV ASDIRECTED Oxytocin/Lactated Ringers [Pitocin in LR 10 Units/1,000 ML] 10 unit in 1,000 ml IV .CONTINUOUS 11/24/19 10:01 PATIENT RETYPE [BBK] Routine 11/24/19 11:20 Consult to Case Management/[employer] Director [CONS] Routine 11/24/19 12:15 Oxytocin/Lactated Ringers [Pitocin in LR 10 Units/1,000 ML] 10 unit in 1,000 ml IV TITRATE 11/24/19 Lunch Regular Diet [DIET] - Assessment Assessment:: PPD#0 - Plan Plan:: * Routine cares * Will monitor bleeding closely, however, do feel all membranes extracted. Will give dose of ancef * Bottle feeding * Discharge home in 1-2 days HPI Initial Comments: [facility] LIVE L/D Delivery Note Patient Name: RAZIA GOODE Date of : [birth year] Patient Status: Inpatient Attending Provider: Yancy Figueredo Date: 11/24/19 15:00 Initialization Date: 11/24/19 15:00 L & D Note - General Info Date of Service: 11/24/19 - Delivery Note Labor: Augmented by Oxytocin Delivery Outcome: Livebirth Infant Delivery Method: Spontaneous Vaginal Delivery-Single Delivery Mode: Spontaneous Presentation: Left Occiput Anterior (FAWN) Nuchal Cord: Present (x2), Reduced Anesthesia Type: Epidural Amniotic Fluid Description: Clear Episiotomy Type: None Laceration: None Placenta: Partial (Placenta delivered, but retained membanes) Cord: 2 Vessels Estimated Blood Loss: 100 Resuscitation Needed: Yes : Bulb Syringe, Stimulated, Warmed, Kincaid Used, Warmer Used Delivery Comments (Free Text/Narrative):: Patient found to be complete and began pushing. With maternal pushing effort head delivered from FAWN presentation. Double nuchal present and reduced. With gentle downward traction shoulders and body delivered. Infant placed on maternal abdomen. Cord clamped and cut. Cord blood obtained. Placenta delivered intact, however, membranes noted to be trailing into the uterus. These were able to be extracted after several passes/manual extraction. Inspection of the perineum showed no lacerations - General Info Date of Service: 11/24/19 - Patient Data Vitals - Most Recent: Last Vital Signs Temp 36.2 C 11/24/19 09:37 Pulse 107 H 11/24/19 09:37 Resp 16 11/24/19 09:37 BP 130/76 11/24/19 09:37 Pulse Ox 98 11/24/19 09:41 Weight - Most Recent: 67.676 kg I&O - Last 24 Hours: Intake & Output 11/24/19 11/24/19 11/24/19 06:59 14:59 22:59 Intake Total 3000 Balance 3000 - Problem List & Annotations (1) 39 weeks gestation of SNOMED Code(s): 19056377 Code(s): Z3A.39 - 39 WEEKS GESTATION OF Status: Acute Current Visit: Yes (2) Normal labor SNOMED Code(s): 65414864 Code(s): O80 - ENCOUNTER FOR FULL-TERM UNCOMPLICATED DELIVERY; Z37.9 - OUTCOME OF DELIVERY, UNSPECIFIED Status: Acute Current Visit: Yes (3) Vaginal delivery SNOMED Code(s): 146165469 Code(s): O80 - ENCOUNTER FOR FULL-TERM UNCOMPLICATED DELIVERY Status: Acute Current Visit: Yes - Problem List Review Problem List Initiated/Reviewed/Updated: Yes - My Orders Last 24 Hours: My Active Orders 11/24/19 09:05 Activity as Tolerated [RC] PFP Communication Order [RC] ASDIRECTED Non Stress Test [RC] PER UNIT ROUTINE Notify Provider [RC] PFP Notify Provider [RC] PRN Vital Signs [RC] PER UNIT ROUTINE Nalbuphine [Nubain] 10 mg IVPUSH Q2H PRN Ondansetron [Zofran] 4 mg IVPUSH Q4H PRN Sodium Chloride 0.9% [Saline Flush] 10 ml FLUSH ASDIRECTED PRN Electronic Heart Tones Ext w TOCO [WOMSER] Routine Electronic Heart Tones Internal [WOMSER] Per Unit Routine Peripheral IV Insertion Adult [OM.PC] Routine Resuscitation Status Routine 11/24/19 09:06 Patient Status [ADT] Routine Heart Tones [RC] ASDIRECTED Peripheral IV Care [RC] . DIRECTED 11/24/19 09:15 RAPID PLASMA REAGIN,RPR [CHEM] Routine Lactated Ringers [Ringers, Lactated] 1,000 ml IV ASDIRECTED Oxytocin/Lactated Ringers [Pitocin in LR 10 Units/1,000 ML] 10 unit in 1,000 ml IV .CONTINUOUS 11/24/19 10:01 PATIENT RETYPE [BBK] Routine 11/24/19 11:20 Consult to Case Management/[employer] Director [CONS] Routine 11/24/19 12:15 Oxytocin/Lactated Ringers [Pitocin in LR 10 Units/1,000 ML] 10 unit in 1,000 ml IV TITRATE 11/24/19 Lunch Regular Diet [DIET] - Assessment Assessment:: PPD#0 - Plan Plan:: * Routine cares * Will monitor bleeding closely, however, do feel all membranes extracted. Will give dose of ancef * Bottle feeding * Discharge home in 1-2 days Brief History: [facility] LIVE . L/D Delivery Note. [facility]: [id number]. Date of : Patient Status: Inpatient. Attending Provider: Yancy Figueredount Number : [id number]. Date: 11/24/19 15:00Initialization Date: 11/24/19 15:00. L & D Note. - General Info. Date of Service: 11/24/19. - Delivery Note. Labor: Augmented by Oxytocin. Delivery Outcome: Livebirth. Infant Delivery Method: Spontaneous Vaginal Delivery-Single. Delivery Mode: Spontaneous. Presentation: Left Occiput Anterior (FAWN). Nuchal Cord: Present (x2), Reduced. Anesthesia Type: Epidural. Amniotic Fluid Description: Clear. Episiotomy Type: None. Laceration: None. Placenta: Partial (Placenta delivered, but retained membanes). Cord: 2 Vessels. Estimated Blood Loss: 100. Resuscitation Needed: Yes. : Bulb Syringe, Stimulated, Warmed, Kincaid Used, Warmer Used. Delivery Comments (Free Text/Narrative):: Patient found to be complete and began pushing. With maternal pushing effort head delivered from FAWN presentation. Double nuchal present and reduced. With gentle downward traction shoulders and body delivered. Infant placed on maternal abdomen. Cord clamped and cut. Cord blood obtained. Placenta delivered intact, however, membranes noted to be trailing into the uterus. These were able to be extracted after several passes/manual extraction. Inspection of the perineum showed no lacerations. - General Info. Date of Service: 11/24/19. - Patient Data. Vitals - Most Recent: Last Vital Signs. Temp 36.2 C 11/24/19 09:37. Pulse 107 H 11/24/19 09:37. Resp 16 11/24/19 09: 37. BP 130/76 11/24/19 09:37. Pulse Ox 98 11/24/19 09:41. Weight - Most Recent: 67.676 kg. I&O - Last 24 Hours: Intake & Output. 11/23/2004/. [id number]:[id number]. Intake [id number]. [id number]. - Problem List & Annotations. (1) 39 weeks gestation of . SNOMED Code(s): 43187605. Code(s): Z3A.39 - 39 WEEKS GESTATION OF Status: Acute Current Visit: Yes. (2) Normal labor. SNOMED Code(s): 87259509. Code(s): O80 - ENCOUNTER FOR FULL-TERM UNCOMPLICATED DELIVERY; Z37.9 - OUTCOME OF DELIVERY, UNSPECIFIED Status: Acute Current Visit: Yes. (3) Vaginal delivery. SNOMED Code(s): 255586557. Code(s): O80 - ENCOUNTER FOR FULL-TERM UNCOMPLICATED DELIVERY Status: Acute Current Visit: Yes. - Problem List Review. Problem List Initiated/Reviewed/Updated: Yes. - My Orders. Last 24 Hours: My Active Orders. 11/24/19 09:05. Activity as Tolerated [RC] PFP. Communication Order [RC] ASDIRECTED. Non Stress Test [RC] PER UNIT ROUTINE. Notify Provider [RC] PFP. Notify Provider [RC] PRN. Vital Signs [RC ] PER UNIT ROUTINE. Nalbuphine [Nubain] 10 mg IVPUSH Q2H PRN. Ondansetron [ Zofran] 4 mg IVPUSH Q4H PRN. Sodium Chloride 0.9% [Saline Flush] 10 ml FLUSH ASDIRECTED PRN. Electronic Heart Tones Ext w TOCO [WOMSER] Routine. Electronic Heart Tones Internal [WOMSER] Per Unit Routine. Peripheral IV Insertion Adult [OM.PC] Routine. Resuscitation Status Routine. 11/24/19 09:06. Patient Status [ADT] Routine. Heart Tones [RC] ASDIRECTED. Peripheral IV Care [RC] . DIRECTED. 11/24/19 09:15. RAPID PLASMA REAGIN,RPR [CHEM] Routine. Lactated Ringers [Ringers, Lactated] 1,000 ml IV ASDIRECTED. Oxytocin/Lactated Ringers [Pitocin in LR 10 Units/1,000 ML] 10 unit in 1,000 ml IV .CONTINUOUS. 11/24/19 10:01. PATIENT RETYPE [BBK] Routine. 11/24/19 11:20. Consult to Case Management/[employer] Director [CONS] Routine. 11/24/19 12:15. Oxytocin/Lactated Ringers [Pitocin in LR 10 Units/1, 000 ML] 10 unit in 1,000 ml IV TITRATE. 11/24/19 Lunch. Regular Diet [DIET]. - Assessment. Assessment:: PPD#0. - Plan. Plan:: Routine cares. Will monitor bleeding closely, however, do feel all membranes extracted. Will give dose of ancef. Bottle feeding. Discharge home in 1-2 days Diagnosis: Stroke: No - Discharge Data Discharge Date: 11/25/19 Discharge Disposition: Home, Self-Care 01 Condition: Good - Referral to Home Health Primary Care Physician: Yancy Figueredo MD - Discharge Diagnosis/Problem(s) (1) 39 weeks gestation of SNOMED Code(s): 26299515 ICD Code: Z3A.39 - 39 WEEKS GESTATION OF Status: Acute Current Visit: Yes (2) Normal labor SNOMED Code(s): 72168563 ICD Code: O80 - ENCOUNTER FOR FULL-TERM UNCOMPLICATED DELIVERY; Z37.9 - OUTCOME OF DELIVERY, UNSPECIFIED Status: Acute Current Visit: Yes (3) Vaginal delivery SNOMED Code(s): 221767592 ICD Code: O80 - ENCOUNTER FOR FULL-TERM UNCOMPLICATED DELIVERY Status: Acute Current Visit: Yes - Patient Summary/Data Complications: none Consults: none Hospital Course: uneventful - Patient Instructions Diet: Usual Diet as Tolerated Driving: Do Not Drive (x48 hrs) Showering/Bathing: May Shower Notify Provider of: Fever, Increased Pain, Swelling and Redness, Drainage, Nausea and/or Vomiting - Discharge Plan *PRESCRIPTION DRUG MONITORING PROGRAM REVIEWED*: Not Applicable *COPY OF PRESCRIPTION DRUG MONITORING REPORT IN PATIENT CASS: Not Applicable Home Medications: Home Meds Ferrous Sulfate [Iron] 325 mg PO DAILY 11/23/19 [History] Pnv No.95/Ferrous Fum/Folic AC [ Vitamin Tablet] 1 each PO DAILY [History] Acetaminophen [Tylenol] 650 mg PO Q6H PRN tablet 11/25/19 [Rx] Benzocaine/Menthol [Dermoplast Pain Relief Dobson] 1 spray TOP ASDIRECTED PRN canister 11/25/19 [Rx] Docusate Sodium [Colace] 100 mg PO BID PRN cap 11/25/19 [Rx] Ibuprofen [Motrin] 600 mg PO Q6H PRN tablet 11/25/19 [Rx] witch Lidia [Tucks] 1 pad TOP ASDIRECTED PRN pad 11/25/19 [Rx] Referrals: Yancy Figueredo MD [Primary Care Provider] - (will call Wednesday for appointment ) - Discharge Summary/Plan Comment DC Time >30 min.: No - Patient Data Vitals - Most Recent: Last Vital Signs Temp 97.9 F 11/25/19 02:48 Pulse 84 11/25/19 02:48 Resp 16 11/25/19 02:48 BP 109/52 L 11/25/19 02:48 Pulse Ox 98 11/25/19 02:48 Weight - Most Recent: 149 lb 3.2 oz I&O - Last 24 hours: Intake & Output 11/24/19 11/24/19 11/25/19 14:59 22:59 06:59 Intake Total 3000 Balance 3000 Lab Results - Last 24 hrs: Laboratory Results - last 24 hr 11/24/19 11/24/19 11/24/19 Range/Units 09:15 09:15 09:15 WBC 14.78 H (3.98-10.04) K/mm3 RBC 4.02 (3.98-5.22) M/mm3 Hgb 11.8 (11.2-15.7) gm/dl Hct 36.6 (34.1-44.9) % MCV 91.0 (79.4-94.8) fl MCH 29.4 (25.6-32.2) pg MCHC 32.2 (32.2-35.5) g/dl RDW Std Deviation 46.2 (36.4-46.3) fL Plt Count 296 (182-369) K/mm3 MPV 9.8 (9.4-12.3) fl RPR Non-reactive (NONREACTIVE) Blood Type A POSITIVE Gel Antibody Screen Negative Med Orders - Current: Current Medications Acetaminophen (Tylenol) 650 mg PO Q4H PRN PRN Reason: mild pain or fever Last Admin: 11/24/19 16:10 Dose: 650 mg Benzocaine/Menthol (Dermoplast Pain Relief Dobson) 0 gm TOP ASDIRECTED PRN PRN Reason: Perineal Comfort Measure Docusate Sodium (Colace) 100 mg PO BID PRN PRN Reason: Constipation Last Admin: 11/25/19 03:38 Dose: 100 mg Ibuprofen (Motrin) 600 mg PO Q6H PRN PRN Reason: Mild pain or fever Last Admin: 11/25/19 03:37 Dose: 600 mg Witch Lidia (Tucks) 1 pad TOP ASDIRECTED PRN PRN Reason: Perineal Comfort Measure Discontinued Medications Cefazolin Sodium/Dextrose (Ancef) Confirm Administered Dose 2 gm IV .STK-MED ONE Stop: 11/24/19 16:06 Last Admin: 11/24/19 16:10 Dose: Not Given Ephedrine Sulfate (Ephedrine Sulfate) 5 mg IVPUSH ASDIRECTED PRN PRN Reason: Hypotension Fentanyl (Sublimaze) 100 mcg EPIDUR Q3H PRN PRN Reason: Pain Last Admin: 11/24/19 09:53 Dose: 100 mcg Fentanyl/Bupivacaine HCl (Fentanyl/Bupivacaine/Ns 2 Mcg-0.125% 100 Ml) 100 ml EPIDUR ASDIRECTED RIAN Last Admin: 11/24/19 09:53 Dose: 100 ml Lactated Ringer's (Ringers, Lactated) 1,000 mls @ 100 mls/hr IV ASDIRECTED RIAN Last Admin: 11/24/19 10:43 Dose: 999 mls/hr Oxytocin/Lactated Ringer's (Pitocin In Lr 10 Units/1,000 Ml) 10 unit in 1,000 mls @ 500 mls/hr IV .CONTINUOUS RIAN Phenylephrine HCl 1 mg/ Sodium (Chloride) 10.1 mls @ 1 mls/sec IV TITRATE RIAN; Protocol Oxytocin/Lactated Ringer's (Pitocin In Lr 10 Units/1,000 Ml) 10 unit in 1,000 mls @ 12 mls/hr IV TITRATE RIAN; Protocol Last Titration: 11/24/19 14:25 Dose: 2 munits/min, 12 mls/hr Cefazolin Sodium/Dextrose 2 gm (/ Premix) 50 mls @ 100 mls/hr IV ONETIME ONE Stop: 11/24/19 15:34 Last Admin: 11/24/19 16:09 Dose: 100 mls/hr Nalbuphine HCl (Nubain) 10 mg IVPUSH Q2H PRN PRN Reason: Pain Ondansetron HCl (Zofran) 4 mg IVPUSH Q4H PRN PRN Reason: Nausea/Vomiting Ondansetron HCl (Zofran) 4 mg IVPUSH ONETIME PRN PRN Reason: Nausea/Vomiting Last Admin: 11/24/19 11:33 Dose: 4 mg Sodium Chloride (Saline Flush) 10 ml FLUSH ASDIRECTED PRN PRN Reason: Keep Vein Open
--- NOTE | 2019-11-26 17:48 | PCM48HPAN ---
Post Anesthesia Note - EVALUATION WITHIN 48HRS OF ANESTHETIC Vital Signs in Normal Range: Yes Patient Participated in Evaluation: Yes Respiratory Function Stable: Yes Airway Patent: Yes Cardiovascular Function Stable: Yes Hydration Status Stable: Yes Pain Control Satisfactory: Yes Nausea and Vomiting Control Satisfactory: Yes Mental Status Recovered: Yes Vital Signs: Last Vital Signs Temp 36.5 C 11/25/19 09:37 Pulse 81 11/25/19 09:37 Resp 16 11/25/19 09:37 BP 105/70 11/25/19 09:37 Pulse Ox 99 11/25/19 09:37
== END 2019-11-25 15:45 | disposition home or self-care (01) | DRG 807 ==
LOC: JD.OBCHECK 08:54 → JD.OB 08:54 → JD.OBCHECK 09:06 → OBSVTOIN 14:40 → JD.OB 14:41
PROVIDERS: ADMIT Obstetrics & Gynecology; ATTEND Obstetrics & Gynecology
PROC: 10E0XZZ Delivery of Products of Conception, External Approach (ICD-10-PCS; principal; 2019-11-24)
PROC: 10907ZC Drainage of Amniotic Fluid, Therapeutic from Products of Conception, Via Natural or Artificial Opening (ICD-10-PCS; 2019-11-24)
PROC: 3E0R3BZ Introduction of Anesthetic Agent into Spinal Canal, Percutaneous Approach (ICD-10-PCS; 2019-11-24)
PROC: 00HU33Z Insertion of Infusion Device into Spinal Canal, Percutaneous Approach (ICD-10-PCS; 2019-11-24)
DX: O69.81X0 Labor and delivery complicated by cord around neck, without compression, not applicable or unspecified (principal); Z37.0 Single live birth; Z3A.39 39 weeks gestation of pregnancy
CPT/HCPCS: 01967; 36415; 51702; 59025; 59409; 85027; 86592; 86850; 86900; 86901; A9270-GY; J0690; J2405; J2590; J3010; J3490; J7120

== ENCOUNTER 2021-12-06 07:51 | Emergency (ER) | payer SELFPAY ==
[2021-12-06] MEDS ORDERED: Ondansetron 4 MG/2 ML SDV IVPUSH ONE (08:13)
[2021-12-06] MEDS ORDERED: Sodium Chloride 0.9% 1,000 ML IV STA (08:13)
[2021-12-06] MEDS ORDERED: HYDROmorphone 1 MG/ML Syringe IVPUSH ONE ×2 (08:14→11:47)
[2021-12-06] MEDS: Sodium Chloride 0.9% 10 ML Syringe FLUSH PRN ×2 (08:25→09:41)
[2021-12-06] MEDS ORDERED: Iopamidol 612 MG/ML 100 ML Bottle IVPUSH ONE (09:31)
[2021-12-06] MEDS ORDERED: Iopamidol 612 MG/ML 50 ML SDV IVPUSH ONE (09:31)
== END 2021-12-06 12:45 | disposition home or self-care (01) ==
LOC: JD.ED 07:51
DX: N83.291 Other ovarian cyst, right side (principal)
CPT/HCPCS: 36415; 74177; 76830; 80053; 81001; 83690; 84703; 85025; 96361; 96374; 96375; 96376; 99284; J1170; J2405; J3490; J7030; Q9967; 99282

== ENCOUNTER 2022-07-31 09:29 | Emergency (ER) | payer MEDICAID ==
[2022-07-31] MEDS ORDERED: Sodium Chloride 0.9% 10 ML Syringe FLUSH PRN (10:13)
[2022-07-31] MEDS ORDERED: Ondansetron 4 MG/2 ML SDV IVPUSH ONE (10:13)
[2022-07-31] MEDS ORDERED: Sodium Chloride 0.9% 1,000 ML IV SCH (10:15)
== END 2022-07-31 13:50 | disposition home or self-care (01) ==
LOC: JD.ED 09:29
DX: R10.31 Right lower quadrant pain (principal); R19.7 Diarrhea, unspecified
CPT/HCPCS: 36415; 80053; 83690; 85025; 96361; 96374; 99284; J2405; J3490; J7030

== ENCOUNTER 2024-02-11 12:39 | Emergency (ER) | payer MEDICAID ==
[2024-02-11] MEDS ORDERED: Sodium Chloride 0.9% 10 ML Syringe FLUSH PRN (13:31)
[2024-02-11 13:35] LABS: BASOPHILS ABSOLUTE AUTO 0.1 K/mm3 (0.0-0.2); BASOPHILS PERCENT AUTO 0.6 % (0.0-1.0); EOSINOPHILS ABSOLUTE AUTO 0.2 K/mm3 (0.0-0.4); EOSINOPHILS PERCENT AUTO 2.8 % (0.0-6.0); HEMATOCRIT 38.4 % (37.0-47.0); HEMOGLOBIN 13.1 gm/dl (12.0-16.0); IMMATURE GRAN ABSOLUTE AUTO 0.07 K/mm3 (0.00-0.05); IMMATURE GRAN PERCENT AUTO 0.9 % (0.0-0.4); LYMPHOCYTES ABSOLUTE AUTO 1.8 K/mm3 (1.0-4.8); MEAN CORPUSCULAR HGB CONC 34.1 g/dl (32.0-36.0); MEAN CORPUSCULAR VOLUME 87.9 fl (83.0-99.0); MEAN PLATELET VOLUME 9.3 fl (9.4-12.3); MONOCYTES ABSOLUTE AUTO 0.5 K/mm3 (0.0-0.8); MONOCYTES PERCENT AUTO 5.8 % (0.0-8.0); NEUTROPHILS ABSOLUTE AUTO 5.5 K/mm3 (1.8-7.7); NEUTROPHILS PERCENT AUTO 67.9 % (41.0-71.0); PLATELET COUNT,PLT 302 K/mm3 (150-400); RED BLOOD CELL COUNT 4.37 M/mm3 (4.10-5.30); WHITE BLOOD CELL COUNT,WBC 8.15 K/mm3 (3.9-11.3)
[2024-02-11 13:50] LABS: APPEARANCE,URINE CLEAR (Clear); BILIRUBIN,URINE NEGATIVE (Negative); COLOR,URINE YELLOW (Yellow); GLUCOSE,URINE NEGATIVE (Negative); KETONES,URINE NEGATIVE (Negative); LEUKOCYTE ESTERASE,URINE 1+ (Negative); NITRITE,URINE NEGATIVE (Negative); OCCULT BLOOD,URINE NEGATIVE (Negative); PH,URINE 6.5 (5.0-8.0); PROTEIN,URINE NEGATIVE (Negative); UROBILINOGEN,URINE 0.2 (0.2-1.0)
[2024-02-11 13:56] LABS: A/G RATIO 1.1 (1-2); ALBUMIN 4.3 g/dl (3.4-5.0); ANION GAP 15.5 (5-15); BILIRUBIN TOTAL 0.4 mg/dL (0.2-1.0); BUN/CREATININE RATIO 13.3 (14-18); CALCIUM 9.3 mg/dL (8.5-10.1); CREATININE 0.6 mg/dL (0.55-1.02); EST CRCL DRUG DOSING (CG) 101.16 mL/min; POTASSIUM,K 3.5 mEq/L (3.5-5.1); PROTEIN TOTAL,TP 8.1 g/dl (6.4-8.2)
[2024-02-11 14:24] LABS: BACTERIA,URINE RARE /hpf (FEW); EPITHELIAL CELLS,URINE 0-5 /hpf (0-5); MUCUS,URINE FEW /hpf (FEW); RBC,URINE 0-5 /hpf (0-5)
[2024-02-11] MEDS: Sodium Chloride 0.9% 1,000 ML IV ONE (14:24)
[2024-02-11] MEDS: Sodium Chloride 0.9% 10 ML Syringe FLUSH PRN (14:25)
[2024-02-11] MEDS: Iopamidol 612 MG/ML 100 ML Bottle IVPUSH ONE (15:58)
[2024-02-11] MEDS: Ketorolac 15 MG/ML SDV IVPUSH ONE (16:02)
[2024-02-11] MEDS: cefTRIAXone 1 GM in Sodium Chloride 0.9% 100 ML IV ONE (16:03)
[2024-02-11] MEDS: Morphine 4 MG/ML Syringe IVPUSH ONE (18:00)
== END 2024-02-11 20:36 | disposition home or self-care (01) ==
LOC: JD.ED 12:39
DX: N83.201 Unspecified ovarian cyst, right side (principal); N30.00 Acute cystitis without hematuria; F17.210 Nicotine dependence, cigarettes, uncomplicated; Z79.899 Other long term (current) drug therapy
CPT/HCPCS: 36415; 71045; 74177; 76705; 76830; 80053; 81001; 83690; 84703; 85025; 87086; 96361; 96365; 96375; 99284; J0696; J1885; J2270; J3490; J7030; Q9967